=== PATIENT | male | born 1980 | race Caucasian/White ===

== ENCOUNTER 2021-04-13 15:47 | Inpatient (IN) ==
[2021-04-13 16:29] LABS: Basophils # 0.1 K/mcL (0.0-0.2); Basophils % 0.8 %; Eosinophils # 0.3 K/mcL (0.0-0.6); Hematocrit 48.7 % (37.5-50.1); Hemoglobin 17.1 g/dL (12.9-16.9); Immature Granulocytes % 1.1 % (0-4); Lymphocytes # 3.7 K/mcL (0.6-4.6); Lymphocytes % 24.9 %; Mean Corpuscular HGB Conc 35.1 g/dL (31.6-35.5); Mean Corpuscular Hemoglobin 33.3 pg (28.0-33.3); Mean Corpuscular Volume 94.9 fL (83.0-100.0); Mean Platelet Volume 9.1 fL (9.4-12.4); Monocytes # 1.5 K/mcL (0.0-1.3); Monocytes % 9.8 %; Neutrophils # 9.2 K/mcL (1.6-8.9); Platelet Count 281 K/mcL (140-400); Red Blood Count 5.13 M/mcL (4.19-5.50); Red Cell Distribution Width 12.6 % (11.5-14.5); Segmented Neutrophils % 61.4 %
[2021-04-13 17:12] LABS: Acetaminophen < 10 mcg/mL (10-20); Alanine Aminotransferase 63 Units/L (7-52); Albumin 4.7 g/dL (3.5-5.7); Albumin/Globulin Ratio 1.7 (1.1-2.2); Alkaline Phosphatase 48 Units/L (34-104); Aspartate Amino Transferase 40 Units/L (13-39); BUN/Creatinine Ratio 14 (6-26); Bilirubin,Direct 0.2 mg/dL (0.0-0.2); Bilirubin,Indirect 1.1 mg/dL (0.0-1.0); Bilirubin,Total 1.3 mg/dL (0.3-1.0); Blood Urea Nitrogen 13 mg/dL (6-20); Calcium 10.4 mg/dL (8.6-10.3); Carbon Dioxide 27 mEq/L (23-29); Chloride 103 mEq/L (98-107); Ethanol < 10 mg/dL (Less than 10); Globulin 2.8 g/dL (2.4-3.5); Glucose 115 mg/dL (70-105); Osmolality,Calculated 295 (280-300); Potassium 3.8 mEq/L (3.5-5.1); Salicylate < 2.5 mg/dL (15.0-30.0); Sodium 142 mEq/L (136-145); Total Protein 7.5 g/dL (6.4-8.9); Troponin I < 0.03 ng/mL (< 0.04); eGFR For African Americans > 60 (> 60); eGFR For Non-African Americans > 60 (> 60)
[2021-04-13 17:55] LABS: Bacteria,Urine Few per hpf (None-Few); Bilirubin,Urine Negative (Negative); Blood,Urine Negative (Negative); Clarity,Urine Clear (Clear); Color,Urine Yellow (Yellow); Glucose,Urine (UA) Normal (Normal); Ketones,Urine 20 mg/dL (Negative); Leukocyte Esterase,Urine Negative (Negative); Mucus,Urine Moderate per lpf (None-Few); Nitrite,Urine Negative (Negative); Protein,Urine 30 mg/dL (Neg-Trace); Specific Gravity,Urine 1.028 (1.010-1.025); Squamous Epithelial Cell,Urine Few per hpf (None-Few); WBC,Urine 0-3 per hpf (0-3)
[2021-04-13] MEDS ORDERED: 0.9 % Sodium Chloride 1,000 ML IVC ONE (17:58)
[2021-04-13] MEDS ORDERED: Ziprasidone 20 MG, Closed System Device IM Kit 1 EACH in Water for inj. (sterile) 1 ML IM ONE (18:32)
[2021-04-13] MEDS ORDERED: Water for inj. (sterile) 10 ML ONE (18:34)
[2021-04-13] MEDS ORDERED: Ziprasidone 20 MG/VIAL VIAL IM ONE (18:34)
[2021-04-13 19:12] LABS: Amphetamine Screen,Urine Negative ng/mL (Cutoff=1000); Barbiturate Screen,Urine Negative ng/mL (Cutoff=200); Benzodiazepines Screen,Urine Negative ng/mL (Cutoff=200); Cannabinoid Screen,Urine Positive ng/mL (Cutoff = 50); Cocaine Screen,Urine Positive ng/mL (Cutoff= 300); Opiate Screen,Urine Negative ng/mL (Cutoff=300); Phencyclidine Screen,Urine Negative ng/mL (Cutoff=25)
[2021-04-13 22:47] LABS: Influenza A PCR Negative (Negative); Influenza B PCR Negative (Negative); Resp. Syncytial Virus PCR Negative (Negative)
[2021-04-13 23:09] LABS: SARS-CoV-2 by PCR (In House) Negative (Negative)
[2021-04-14] MEDS ORDERED: haloperidoL 5 MG TABLET PO PRN (00:10)
[2021-04-14] MEDS ORDERED: *HR* LORazepam 1 MG TABLET PO PRN (00:10)
[2021-04-14] MEDS ORDERED: QUEtiapine Fumarate 25 MG TABLET PO PRN (00:10)
[2021-04-14] MEDS ORDERED: *HR* LORazepam 2 MG/ML VIAL IM PRN (00:10)
[2021-04-14] MEDS ORDERED: Haloperidol Lactate 5 MG/ML VIAL IM PRN (00:10)
[2021-04-14] MEDS: hydrOXYzine pamoate 25 MG CAPSULE PO PRN ×2 (00:45→21:53)
[2021-04-14] MEDS: Acetaminophen 325 MG TABLET PO PRN (00:45)
[2021-04-14] MEDS ORDERED: Mag Hydrox/Al Hydrox/Simeth 30 ML UDC PO PRN (12:49)
[2021-04-14] MEDS ORDERED: MOM Conc 10 ML UD.LIQ PO PRN (12:49)
[2021-04-14] MEDS: Nicotine 21 MG PATCH.TD24 TD SCH (14:49)
[2021-04-14] MEDS: Melatonin 3 MG TABLET PO SCH (21:53)
[2021-04-14] MEDS: OLANZapine 10 MG TAB.RAPDIS PO SCH (21:53)
[2021-04-15] MEDS: Nicotine 21 MG PATCH.TD24 TD SCH (11:11)
[2021-04-15] MEDS: Melatonin 3 MG TABLET PO SCH (20:15)
[2021-04-15] MEDS: hydrOXYzine pamoate 25 MG CAPSULE PO PRN (20:15)
[2021-04-15] MEDS: Acetaminophen 325 MG TABLET PO PRN (20:15)
[2021-04-15] MEDS: OLANZapine 10 MG TAB.RAPDIS PO SCH (20:15)
[2021-04-15 21:02] VITALS: O2SAT 100
[2021-04-16] MEDS: Nicotine 21 MG PATCH.TD24 TD SCH (09:34)
[2021-04-16 09:39] VITALS: BP 135/87; PULSE 64; TEMP 96.6
[2021-04-16] MEDS ORDERED: FLU Vac QV 21-22 (6Month+)/PF 0.5 ML SYRINGE IM ONE (11:46)
[2021-04-16] MEDS ORDERED: Moderna Covid-19 Vaccine 100MCG/0.5mL IM ONE (11:47)
== END 2021-04-16 17:05 | disposition home or self-care (01) | DRG 750 ==
LOC: EMEROOARM 15:47 → 1ANU 23:33
PROVIDERS: ADMIT Psychiatry & Neurology Psychiatry; ATTEND Psychiatry & Neurology Psychiatry

== ENCOUNTER 2021-12-09 17:21 | Inpatient (IN) ==
[2021-12-09 21:09] LABS: Influenza A PCR Negative (Negative); Influenza B PCR Negative (Negative); Resp. Syncytial Virus PCR Negative (Negative)
[2021-12-09 21:15] LABS: SARS-CoV-2 by PCR (In House) Negative (Negative)
[2021-12-09] MEDS ORDERED: hydrOXYzine pamoate 25 MG CAPSULE PO PRN (21:29)
[2021-12-09] MEDS ORDERED: QUEtiapine Fumarate 25 MG TABLET PO PRN (21:29)
[2021-12-09] MEDS ORDERED: *HR* LORazepam 1 MG TABLET PO PRN (21:29)
[2021-12-09] MEDS ORDERED: *HR* LORazepam 2 MG/ML VIAL IM PRN (21:29)
[2021-12-09] MEDS ORDERED: ChlorproMAZINE 25 MG/ML AMPUL IM PRN (21:45)
[2021-12-09] MEDS ORDERED: chlorproMAZINE 25 MG TABLET PO PRN (21:45)
[2021-12-10] MEDS: Melatonin 3 MG TABLET PO SCH ×2 (06:21→20:51)
[2021-12-10] MEDS: OLANZapine 5 MG TAB.RAPDIS PO SCH (10:05)
[2021-12-10] MEDS ORDERED: Mag Hydrox/Al Hydrox/Simeth 30 ML UDC PO PRN (11:56)
[2021-12-10] MEDS ORDERED: MOM Conc 10 ML UD.LIQ PO PRN (11:56)
[2021-12-11] MEDS: OLANZapine 5 MG TAB.RAPDIS PO SCH (08:18)
[2021-12-11] MEDS: Melatonin 3 MG TABLET PO SCH ×2 (21:01→22:19)
[2021-12-11] MEDS: Acetaminophen 325 MG TABLET PO PRN (22:19)
[2021-12-12] MEDS: Acetaminophen 325 MG TABLET PO PRN (08:40)
[2021-12-12] MEDS: OLANZapine 5 MG TAB.RAPDIS PO SCH (08:41)
[2021-12-12] MEDS: Melatonin 3 MG TABLET PO SCH (20:41)
[2021-12-13] MEDS: Acetaminophen 325 MG TABLET PO PRN (08:24)
[2021-12-13] MEDS ORDERED: OLANZapine 5 MG TAB.RAPDIS PO SCH (09:00)
[2021-12-13 09:37] VITALS: BP 121/84; PULSE 64; TEMP 98.3; O2SAT 99
== END 2021-12-13 15:15 | DRG 750 ==
LOC: EMEROOARM 17:21 → 1ANU 21:21
PROVIDERS: ADMIT Psychiatry & Neurology Psychiatry; ATTEND Psychiatry & Neurology Psychiatry